=== PATIENT | female | born 1985 | race Asian ===

== ENCOUNTER 2018-03-22 10:21 | Outpatient (CLI) | payer BC ==
--- NOTE | 2018-03-22 12:22 | ULT ---
THYROID ULTRASOUND: Date: 03/22/18 HISTORY: Thyroid nodules. COMPARISON: None. TECHNIQUE: Sagittal and transverse imaging of the thyroid gland performed. FINDINGS: Thyroid isthmus measures 0.26 cm. Right thyroid lobe measures 4.0 x 1.4 x 1.2 cm. Left thyroid lobe measures 1.0 x 0.9 x 3.7 cm. Hypoechoic focus in the right thyroid lobe measuring 0.2 cm. IMPRESSION: No significant solid or cystic masses throughout the thyroid gland. TI-RADS calculator is TR1. Benign finding. POS: SHAYY
== END 2018-03-22 10:22 | disposition home or self-care (01) ==
LOC: SCSULT 10:21
PROVIDERS: ATTEND Family Medicine
DX: Z09 Encounter for follow-up examination after completed treatment for conditions other than malignant neoplasm (principal); Z86.39 Personal history of other endocrine, nutritional and metabolic disease
CPT/HCPCS: 76536